=== PATIENT | male | born 1995 | race Caucasian/White ===

== ENCOUNTER 2025-08-11 08:35 | Emergency (ER) | payer MEDICAID, SELFPAY ==
[2025-08-11 08:38] VITALS: BP 128/86; PULSE 94; RESP 17; TEMP 36.6; O2SAT 99
[2025-08-11 08:45] VITALS: PULSE 94; O2SAT 97; BMI 22.5
--- NOTE | 2025-08-11 09:00 | PC.NURSE ---
Pt BIBA due to witnessed seizures while he was in a car as a passenger. Witness states that the pt had 4 seizures where there was convulsing more than twitching and where the pt would occasionally hold his breath and witness would sternal rub him to get him out of it. Pt is currently postictal, able to get him to open his eyes when I talk loud and apply slight physical stimulation (shoulder shake). Witness is a long time family friend and pt's transportation from [facility] . Stated pt has a long hx of seizure disorder, and is typically medication compliant. Could definitely be under extra stress due to they were headed to court for the pt when these break through seizure occurred.
[2025-08-11] MEDS: levETIRAcetam INJ 100 MG/ML VIAL 5ML 1500 MG IVP (09:24)
--- NOTE | 2025-08-11 09:37 | PC.NURSE ---
Pt states he did take his medication this morning, Keppra 1000mg and Depakote 1000 mg, and then anxiety medications but her can not recall those at this time. Pt provided his father's phone number [phone] [place] as pt's hop picker transportation
[2025-08-11 09:59] LABS: Basophils # (Auto) 0.1 Thou/mm3 (0.0-0.2); Basophils % (Auto) 1 % (0-2.5); Eosinophils # (Auto) 0.4 Thou/mm3 (0.0-0.5); Eosinophils % (Auto) 3 % (0-10); Hematocrit 42.2 % (41.0-53.0); Hemoglobin 14.1 g/dL (13.5-16.0); Immature Granulocytes Auto 0.12 Thou/mm3 (0.00-0.00); Lymphocytes # (Auto) 1.9 Thou/mm3 (1.0-4.8); Lymphocytes % (Auto) 17 % (10-50); Mean Corpuscular HGB Conc 33.4 g/dl (31.0-37.0); Mean Corpuscular Hemoglobin 29.8 pg (25.0-35.0); Mean Corpuscular Volume 89 fL (80-100); Monocytes # (Auto) 1.5 Thou/mm3 (0.0-0.8); Monocytes % (Auto) 13 % (0-12); Neutrophils # (Auto) 7.5 Thou/mm3 (1.8-7.7); Neutrophils % (Auto) 66 % (37-80); Nucleated Red Blood Cell # 0.00 Thou/mm3 (0.00-0.00); Nucleated Red Blood Cell % 0 /100 WBC (0); Platelet Count 383 Thou/mm3 (140-440); RDW Standard Deviation 41.1 fL (35.1-43.9); Red Blood Count 4.73 Miln/mm3 (4.50-5.90); White Blood Count 11.4 Thou/mm3 (3.8-10.6)
[2025-08-11] MEDS: DIVALPROEX SOD DR 500 MG TABLET.DR 1000 MG PO (10:05)
[2025-08-11 10:28] LABS: Alanine Aminotransferase 11 U/L (10-49); Albumin, Serum 4.6 gm/dL (3.5-5.0); Albumin/Globulin Ratio 1.8 (1.2-2.2); Alkaline Phosphatase 91 U/L (46-116); Anion Gap 6 (7-16); Aspartate Amino Transferase 15 U/L (0-34); BUN/Creatinine Ratio 9 Ratio (12-20); Bilirubin,Total 0.2 mg/dL (0.3-1.2); Blood Urea Nitrogen 6 mg/dL (9-23); Calcium 9.2 mg/dL (8.3-10.6); Calcium (Corrected) 9.2 mg/dL (8.5-10.1); Carbon Dioxide 30.7 mMol/L (20.0-31.0); Chloride 107 mMol/L (98-107); Creatinine (Component) 0.7 mg/dL (0.6-1.3); Estimated Creatinine Clearance 149.2 mL/min (>60); Globulin 2.6 gm/dL (2.3-3.5); Glucose 76 mg/dL (74-106); Osmolality,Calculated 283 (275-295); Potassium 4.2 mMol/L (3.4-5.1); Sodium 144 mMol/L (136-145); Total Protein 7.2 gm/dL (5.7-8.2); eGFR > 60 See Note
[2025-08-11 10:33] LABS: Collection Type, Urine Clean Catch; Squamous Epithelial Cell,Urine 0 /hpf (0-5)
[2025-08-11 10:44] LABS: Bilirubin,Urine Negative (Negative); Blood,Urine Negative (Negative); Clarity,Urine Clear (Clear/Hazy); Color,Urine Colorless (Lt Yel-Yel); Culture Indicated,Urine Not Indicated; Glucose, Urine Negative (Negative); Ketones,Urine Negative (Negative); Leukocyte Esterase,Urine Negative (Negative); Nitrite,Urine Negative (Negative); PH,Urine 6.0 (5.0-7.0); Protein,Urine Negative (Neg - Trace); RBC,Urine < 1 /hpf (0-3); Specific Gravity,Urine 1.009 (1.001-1.035); Urobilinogen,Urine Negative mg/dL (0.0-1.0); WBC,Urine < 1 /hpf (0-5)
[2025-08-11 10:56] LABS: Amphetamine/Methamp Scrn,U Positive (Negative); Barbiturate Screen,Urine Negative (Negative); Benzodiazepines Screen,Urine Negative (Negative); Benzoylecgonine Screen, Ur Negative (Negative); Fentanyl Screen,Urine Negative (Negative); Opiate Screen,Urine Negative (Negative); THC Screen,Urine Positive (Negative)
--- NOTE | 2025-08-11 11:24 | EDNOTE_ITS ---
ED Seizures RME/HPI General Chief Complaint: Seizure Stated Complaint: SEIZURE Time Seen by Provider: 08/11/25 08:43 Arrival date/time: 08/11/25 08:35 RME / HPI RME / HPI Narrative: 29-year-old male presented after experiencing four consecutive seizures this morning, each lasting approximately 30 seconds, while en route to the [facility]. He reports mild shoulder discomfort following the seizures and denies other symptoms. The patient ran out of his seizure medications last night and was unable to take his morning doses. He took seizure medications prior to arrival. Past medical history is notable for seizures. 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 Related Data Home Medications ?Medication ?Instructions ?Recorded ?Confirmed lacosamide 200 mg tablet (Vimpat) 200 mg PO BID 11/21/20 Previous Rx's ?Medication ?Instructions ?Recorded divalproex 500 mg tablet,delayed 1,000 mg (2 x 500 mg) PO BID #60 08/11/25 release (Depakote) tabs levetiracetam 500 mg tablet 1,000 mg (2 x 500 mg) PO B ID #60 08/11/25 (Keppra) tabs Allergies Allergy/AdvReac Type Severity Reaction Status Date / Time No Known Allergies Allergy Verified 08/11/25 08:49 ED Exam Narrative Physical exam: General: Resting comfortably in bed, no distress, a bit sleepy. Eyes: Appear normal with no scleral icterus. HENT: Atraumatic. Moist mucous membranes, no pharyngeal erythema, edema or lesions. Neck: Atraumatic, supple. Cardiac: Regular rate and rhythm. Respiratory: Lungs clear to auscultation bilaterally. Abdomen: Soft, nontraumatic; mild epigastric tenderness; no rebound or guarding. MS: Extremities atraumatic. No edema. Skin: No exanthems, no cyanosis, no diaphoresis. Neurologic: No altered mental status at present, speech is fluent. No motor deficits. Psychological: Cooperative and participatory with examination. Course Course Course Narrative: Patient received dose of Keppra as well as Depakote here. Quality Measures none Orders Category Date Time Status CBC Stat Lab 08/11/25 09:49 Completed CMP [Comprehensive Metabolic Panel] Stat Lab 08/11/25 09:49 Completed Drug Screen,Urine Stat Lab 08/11/25 10:01 Completed Urinalysis, C/S if Indicated Stat Lab 08/11/25 10:[address] [Depakote Dr] Med 08/11/25 09:15 Discontinued 1,000 mg PO X1 ONE levETIRAcetam INJ [Keppra Inj] Med 08/11/25 09:13 Discontinued 1,500 mg IVP X1 ONE Vital Signs Vital signs: Vital Signs Temperature 97.9 F 08/11/25 08:38 Pulse Rate 94 08/11/25 08:38 Respiratory Rate 17 08/11/25 08:38 Blood Pressure 128/86 H 08/11/25 08:38 Pulse Oximetry (%) 99 08/11/25 08:38 Oxygen Delivery Method Room Air 08/11/25 08:38 Seizure MDM Narrative MDM Narrative:: The patient presented with acute recurrent seizures after missing doses of home antiepileptic medications (Depakote and Keppra). He had four seizures, each lasting 20 seconds, with mild postictal shoulder discomfort and no other symptoms. Physical exam showed a sleepy but stable patient with no focal deficits. Urine drug screen was positive for methamphetamine and marijuana; electrolytes, urinalysis, and non-contrast CT head are pending. In the ED, he received Keppra and Depakote, remained hemodynamically stable, and had no further seizures. Given the absence of severe worsening, stable exam, and no acute findings, he was safely discharged home with return precautions. Given refill for meds for home. 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 Social determinants that could affect healthcare access:: substance use Patient has the following chronic illnesses:: seizure disorder How is presenting disease/condition affected by chronic disease/condition?: caused by Evaluation data The following diagnostics were reviewed and interpreted by me:: lab results Lab and/or radiology exams considered but not ordered:: none Interpretation Summary: as above Medications / Prescriptions Medications or Prescriptions considered but not ordered:: none Medication administrations:: Medication Administration History Discontinued Medications Divalproex Sodium (Divalproex Sod Dr 500 Mg Tablet.) 1,000 mg PO X1 ONE Stop: 08/11/25 09:16 Last Admin: 08/11/25 10:05 Dose: 1,000 mg Documented By: CS Levetiracetam (Levetiracetam Inj 100 Mg/Ml Vial 5ml) 1,500 mg IVP X1 ONE Stop: 08/11/25 09:14 Last Admin: 08/11/25 09:24 Dose: 1,500 mg Documented By: CS as above Consultations Consultation(s) initiated? (list below): No Diagnosis Seizure Differential Diagnosis: intractable seizure disorder, generalized seizure, new onset seizure, epileptic seizure and status epilepticus Most likely diagnosis given after review of the tests above:: Seizure, recurrent. Admission Indicated Admission indicated?: not indicated Admission Request Was there a request for admission?: No Disposition Plan Disposition Plan: Discharge Discharge Attestation Discharge Attestation: The patient and all family members were given an opportunity to ask questions and understood the discharge instructions. Discharge instructions specifically effects, indications for sooner follow up or return to the emergency department, and the expected course of current diagnosis. Patient condition: Stable Discharge Plan Plan Patient Disposition: HOME (Self Care) Patient condition on transfer: Stable Prescriptions/Referrals Prescriptions/Med Rec: New levetiracetam [Keppra] 500 mg tablet 1,000 mg PO BID Qty: 60 0RF divalproex [Depakote] 500 mg tablet,delayed release (DR/EC) 1,000 mg PO BID Qty: 60 0RF No Action Vimpat 200 mg Tablet 200 mg PO BID Referrals: No Primary/Family,Physician [Primary Care Provider] - In 1 week Problem List Clinical Impression: Generalized seizure Patient/Caregiver Discharge Instructions Education Materials: ED Seizure, Recurrent (Adult) Additional Instructions: Some general health principles that can help you are the [employer] START principles: Nutrition (eat a plant-based diet, avoiding meats in general, avoiding highly processed foods) Exercise (Daily exercise/walks as tolerated) Water (Drink adequate fresh water to maintain hydration, concentrating on water rather than on soda, coffee, tea, juice, etc for hydration) [place] (Spend time - 15-20 minutes or so with skin exposed in the director of early childhood and late evening sun for Vitamin D health benefits) [place] (Avoid alcohol, illicit drugs, caffeinated beverages, smoking, etc) Air (Deep breathing exercises in the early mornings in fresh air) Rest (Adequate rest at night, going to bed a few hours before midnight and avoiding all screens/television/loud music in the time right before going to bed, also avoiding heavy meals just prior to going to bed) Trust in God (Spend time daily in Bible study and prayer - health benefits in contemplation of God's true character) Additional resources that can benefit: www.[employer].com, look under resources and seminars. Another good website is www.[facility].org Print Language: Thai Stand Alone Forms: Leigh Ann Award Info., Patient Portal Info Letter
--- NOTE | 2025-08-11 11:43 | PC.NURSE ---
Called pt's ride, which is coming from [place] but stated he is on his way
[2025-08-11 12:04] VITALS: BP 125/80; PULSE 100; RESP 19; TEMP 36.9; O2SAT 96
== END 2025-08-11 12:05 | disposition home or self-care (01) ==
PROVIDERS: Emergency Provider Family Medicine
DX: R56.9 Unspecified convulsions (principal)
CPT/HCPCS: 36415; 80053; 80307; 81001; 85025; 96374; 99283; J1953; A9270